=== PATIENT | female | born 1955 ===

== ENCOUNTER 2024-06-27 18:42 | Inpatient (IN) | payer MEDICARE ==
[~2024-06-27] VITALS: Ht 154.9 cm; Wt 78.9 kg
[2024-06-27] MEDS ORDERED: METF-440 PO (18:53)
[2024-06-27] MEDS ORDERED: DESV50TA PO (18:53)
[2024-06-27] MEDS ORDERED: GABA-532 PO (18:53)
[2024-06-27] MEDS ORDERED: TRAZ-182 PO (18:53)
[2024-06-27] MEDS ORDERED: SENN1TAB77 PO (18:53)
[2024-06-27] MEDS ORDERED: LOSA100T31 PO (18:53)
[2024-06-27] MEDS ORDERED: QUET50TA15 PO (18:53)
[2024-06-27 19:05] LABS: BASOPHILS # (AUTO) 0.1 K/UL (0.0-0.2); BASOPHILS % (AUTO) 0.8 % (0.0-2.0); DIFFERENTIAL COMMENT 0; EOSINOPHILS # (AUTO) 0.2 K/uL (0.0-0.7); HEMATOCRIT 42.2 % (31.2-41.9); HEMOGLOBIN 13.9 g/dL (10.9-14.3); LYMPHOCYTES % (AUTO) 36.9 % (20.5-51.5); MEAN CORPUSCULAR HEMOGLOBIN 30.4 uug (24.7-32.8); MEAN CORPUSCULAR HGB CONC 33 g/dL (32.3-35.6); MEAN CORPUSCULAR VOLUME 92.5 fL (75.5-95.3); MONOCYTES # (AUTO) 0.6 K/uL (0.1-1.30); MONOCYTES % (AUTO) 7.3 % (0.0-11.0); NEUTROPHILS # (AUTO) 4.2 K/uL (1.8-8.9); PLATELET COUNT (AUTO) 312 K/uL (179-408); RED BLOOD CELL COUNT(AUTO) 4.56 MIL/uL (3.63-4.92); RED CELL DISTRIBUTION WIDTH 15.1 % (12.3-17.7)
[2024-06-27 19:12] LABS: *BILIRUBIN,URIN NEGATIVE (NEGATIVE); *BLOOD, URINE NEGATIVE (NEGATIVE); *CLARITY,URINE CLEAR (CLEAR); *COLOR,URINE YELLOW (YELLOW); *KETONES,URINE NEGATIVE (NEGATIVE); *PROTEIN,URINE NEGATIVE (NEGATIVE); *UROBILINOGEN,URINE 0.2 E.U./dl (NORMAL); LEUKOCYTE ESTERASE ,URINE TRACE (NEGATIVE); NITRITE, URINE NEGATIVE (NEGATIVE); PH,URINE 5.5 (5.0-8.0); UGLUCOSE NEGATIVE (NEGATIVE)
[2024-06-27 19:14] LABS: CALCIUM 9.4 mg/dL (8.5-10.1); CARBON DIOXIDE 29 mmol/L (21-32); CHLORIDE 103 mmol/L (98-107); CREATININE 1.1 mg/dL (0.6-1.3); GLUCOSE 101 mg/dL (74-106); POTASSIUM 3.9 mmol/L (3.5-5.1); RBC,URINE 0-3 /HPF (0-3); SODIUM SERUM 140 mmol/L (136-145); UREA NITROGEN, BLOOD 13 mg/dL (7-18); WBC,URINE 0-3 /HPF (0-3)
[2024-06-27 19:19] LABS: ETHANOL < 3 MG/DL (0-10)
[2024-06-27 19:20] LABS: *AMPHETAMINE, URINE NEGATIVE (NEGATIVE); *BARBITURATE, URINE NEGATIVE (NEGATIVE); *BENZODIAZEPINE, URINE NEGATIVE (NEGATIVE); *CANNABINOID, URINE NEGATIVE (NEGATIVE); *COCCAINE, URINE NEGATIVE (NEGATIVE); *OPIATE, URINE NEGATIVE (NEGATIVE); *PHENCYCLIDINE SCREEN,URINE NEGATIVE (NEGATIVE); ACETAMINOPHEN < 2.0 ug/mL (10-30); ALANINE AMINOTRANSFERASE 16 U/L (14-59); ALBUMIN 3.7 g/dL (3.4-5.0); ALKALINE PHOSPHATASE 97 U/L (50-136); ASPARTATE AMINOTRANSFERASE 11 U/L (15-37); BILIRUBIN,TOTAL 0.3 mg/dL (0.2-1.0); FENTANYL, URINE NEGATIVE (NEGATIVE); TOTAL PROTEIN, SERUM 7.6 g/dL (6.4-8.2)
[2024-06-27 22:07] VITALS: BP 165/81; TEMP 97.9; O2SAT 98
[2024-06-27] MEDS ORDERED: MAG HYDROX/AL HYDROX/SIMETH 30 ML LIQUID UDC PO PRN (23:45)
[2024-06-27] MEDS ORDERED: TEMAZEPAM 7.5 MG CAPSULE PO PRN ×2 (23:45)
[2024-06-27] MEDS ORDERED: MAGNESIUM HYDROXIDE 30 ML LIQUID UDC PO PRN (23:45)
[2024-06-27] MEDS ORDERED: CLONAZEPAM 0.5 MG TABLET PO PRN (23:45)
[2024-06-28] MEDS: BLOOD SUGAR DIAGNOSTIC 1 EACH STRIP VI ONE (00:37)
[2024-06-28 07:55] VITALS: BP 168/73; TEMP 98; O2SAT 99
[2024-06-28 09:23] LABS: CALCIUM 9.3 mg/dL (8.5-10.1); CARBON DIOXIDE 29 mmol/L (21-32); CHLORIDE 104 mmol/L (98-107); CREATININE 1.2 mg/dL (0.6-1.3); GLUCOSE 131 mg/dL (74-106); POTASSIUM 3.7 mmol/L (3.5-5.1); SODIUM SERUM 141 mmol/L (136-145); UREA NITROGEN, BLOOD 11 mg/dL (7-18)
[2024-06-28] MEDS: LOSARTAN POTASSIUM 50 MG TABLET PO SCH (09:44)
[2024-06-28] MEDS: GABAPENTIN 100 MG CAPSULE PO SCH (09:44)
[2024-06-28] MEDS: METFORMIN HCL 500 MG TABLET PO SCH (09:44)
[2024-06-28] MEDS: VENLAFAXINE XR 75 MG TAB.ER.24H PO SCH (09:45)
[2024-06-28 16:20] VITALS: BP 155/73; TEMP 98; O2SAT 98
[2024-06-28 19:52] VITALS: BP 152/75; TEMP 98; O2SAT 99
[2024-06-28] MEDS: QUETIAPINE FUMARATE 25 MG TABLET PO SCH (20:27)
[2024-06-28] MEDS: SENNOSIDES/DOCUSATE SODIUM TABLET PO SCH (20:27)
[2024-06-28] MEDS: ACETAMINOPHEN 325 MG TABLET PO PRN (21:14)
[2024-06-29 08:51] VITALS: BP 130/64; TEMP 98; O2SAT 98
[2024-06-29 15:17] VITALS: BP 128/64; TEMP 98; O2SAT 99
[2024-06-29 20:00] VITALS: BP 153/72; TEMP 98.2; O2SAT 99
[2024-06-30 08:00] VITALS: BP 183/80; TEMP 98; O2SAT 98
[2024-06-30 16:00] VITALS: BP 178/78; TEMP 98.2; O2SAT 94
[2024-06-30 20:16] VITALS: BP 178/82; TEMP 98; O2SAT 99
[2024-06-30 21:51] VITALS: BP 121/62; O2SAT 98
[2024-07-01 09:03] VITALS: BP 163/62; TEMP 97.6; O2SAT 99
[2024-07-01 17:44] VITALS: BP 160/76; TEMP 97.9; O2SAT 98
[2024-07-01 20:00] VITALS: BP 145/73; TEMP 97.6; O2SAT 98
[2024-07-02 08:31] VITALS: BP 182/71; TEMP 98.3; O2SAT 98
[2024-07-02] MEDS: CLONAZEPAM 0.5 MG TABLET PO PRN (15:47)
[2024-07-02 16:45] VITALS: BP 157/118; TEMP 98.1; O2SAT 98
[2024-07-02 19:45] VITALS: BP 167/66; TEMP 97.2; O2SAT 99
[2024-07-03 09:07] VITALS: BP 128/77; TEMP 98.2; O2SAT 99
[2024-07-03 15:09] VITALS: BP 106/60; TEMP 98.1; O2SAT 98
[2024-07-03 20:00] VITALS: BP 158/70; TEMP 98.1; O2SAT 97
[2024-07-04 07:45] VITALS: BP 143/70; TEMP 98; O2SAT 98
[2024-07-04 15:09] VITALS: BP 139/52; TEMP 98; O2SAT 98
[2024-07-04 20:00] VITALS: BP 147/59; TEMP 97.5; O2SAT 98
[2024-07-05 07:50] VITALS: BP 155/87; TEMP 98; O2SAT 99
[2024-07-05 15:53] VITALS: BP 152/65; TEMP 98; O2SAT 99
[2024-07-05 20:00] VITALS: BP 141/75; TEMP 98.1; O2SAT 99
[2024-07-06 08:01] VITALS: BP 166/58; TEMP 98; O2SAT 98
[2024-07-06] MEDS ORDERED: VENLAFAXINE XR 75 MG TAB.ER.24H PO SCH (09:00)
[2024-07-06] MEDS: VENLAFAXINE XR 37.5 MG CAP.SR.24H PO SCH (09:28)
[2024-07-06 15:54] VITALS: BP 132/68; TEMP 98; O2SAT 98
[2024-07-06 20:00] VITALS: BP 140/60; TEMP 98.5; O2SAT 98
[2024-07-06] MEDS: QUETIAPINE FUMARATE 25 MG TABLET PO SCH (20:37)
[2024-07-07 07:53] VITALS: BP 167/84; TEMP 98; O2SAT 98
[2024-07-07 15:19] VITALS: BP 186/73; TEMP 98; O2SAT 98
[2024-07-07 20:00] VITALS: BP 147/56; TEMP 98; O2SAT 98
[2024-07-08 08:49] VITALS: BP 184/76; TEMP 98.2; O2SAT 98
[2024-07-08] MEDS: AMLODIPINE 5 MG TABLET PO SCH (11:55)
[2024-07-08 18:21] VITALS: BP 124/74; TEMP 98; O2SAT 98
[2024-07-08 20:00] VITALS: BP 163/72; TEMP 98; O2SAT 99
[2024-07-09 09:37] VITALS: BP 171/76; TEMP 98.3; O2SAT 98
[2024-07-09 17:31] VITALS: BP 149/76; TEMP 98.1; O2SAT 98
[2024-07-09 20:10] VITALS: BP 145/63; TEMP 98; O2SAT 99
[2024-07-09] MEDS: AMLODIPINE 5 MG TABLET PO SCH (21:11)
[2024-07-10 08:00] VITALS: BP 139/73; TEMP 97.6; O2SAT 98
[2024-07-10 20:13] VITALS: BP 136/68; TEMP 98; O2SAT 99
[2024-07-10] MEDS: QUETIAPINE FUMARATE 100 MG TABLET PO SCH (20:48)
[2024-07-10] MEDS ORDERED: QUETIAPINE FUMARATE 25 MG TABLET PO SCH (21:00)
[2024-07-11 07:57] VITALS: BP 149/77; TEMP 98; O2SAT 99
[2024-07-11 15:12] VITALS: BP 111/59; TEMP 98; O2SAT 99
[2024-07-11 19:49] VITALS: BP 136/63; TEMP 98.1; O2SAT 97
[2024-07-12 08:10] VITALS: BP 146/65; TEMP 98; O2SAT 99
[2024-07-12 16:13] VITALS: BP 133/69; TEMP 98; O2SAT 99
[2024-07-12 20:15] VITALS: BP 156/75; TEMP 98.1; O2SAT 98
[2024-07-13 09:21] VITALS: BP 149/80; TEMP 98; O2SAT 100
[2024-07-13 16:20] VITALS: BP 138/67; TEMP 98; O2SAT 100
[2024-07-13 19:45] VITALS: BP 141/67; TEMP 98; O2SAT 96
[2024-07-14 07:57] VITALS: BP 147/83; TEMP 98; O2SAT 100
[2024-07-14 09:12] VITALS: BP 147/83
== END 2024-07-14 13:00 | DRG 885 ==
LOC: ER 18:43 → GPS 21:15
PROVIDERS: ADMIT Psychiatry & Neurology Psychiatry; ATTEND Nurse Practitioner Acute Care
DX: F33.2 Major depressive disorder, recurrent severe without psychotic features (principal); R45.851 Suicidal ideations; D68.69 Other thrombophilia; Z79.84 Long term (current) use of oral hypoglycemic drugs; E11.42 Type 2 diabetes mellitus with diabetic polyneuropathy; E66.01 Morbid (severe) obesity due to excess calories; Z68.32 Body mass index [BMI] 32.0-32.9, adult; Z71.3 Dietary counseling and surveillance; E11.40 Type 2 diabetes mellitus with diabetic neuropathy, unspecified; H40.9 Unspecified glaucoma; E11.319 Type 2 diabetes mellitus with unspecified diabetic retinopathy without macular edema; M15.9 Polyosteoarthritis, unspecified; Z87.442 Personal history of urinary calculi; Z88.8 Allergy status to other drugs, medicaments and biological substances; E78.5 Hyperlipidemia, unspecified; F41.9 Anxiety disorder, unspecified; I10 Essential (primary) hypertension; J45.909 Unspecified asthma, uncomplicated; Z79.899 Other long term (current) drug therapy; Z81.8 Family history of other mental and behavioral disorders
CPT/HCPCS: 36415; 76770; 85025; A4606; A4663; G0480

== ENCOUNTER 2024-11-02 21:34 | Inpatient (IN) | payer MEDICARE ==
[~2024-11-02] VITALS: Ht 154.9 cm; Wt 81.6 kg
[~2024-11-02 21:34] MED LIST: GABA-532 PO; LOSA100T31 PO; METF-440 PO; SENN1TAB77 PO
[2024-11-03] MEDS ORDERED: TRAZ-182 PO (00:38)
[2024-11-03] MEDS ORDERED: AMLO10TA59 PO (00:38)
[2024-11-03] MEDS ORDERED: ATOR40TA PO (00:38)
[2024-11-03] MEDS ORDERED: METO25TA6 PO (00:38)
[2024-11-03] MEDS ORDERED: VENL75TA4 PO (00:38)
[2024-11-03] MEDS ORDERED: DESV100T PO (00:43)
[2024-11-03] MEDS ORDERED: HYOS-19 PO (00:43)
[2024-11-03] MEDS ORDERED: BREX1TAB PO (00:43)
[2024-11-03 00:50] VITALS: BP 139/57; TEMP 98.1; O2SAT 97
[2024-11-03] MEDS ORDERED: CLONAZEPAM 0.5 MG TABLET PO PRN (01:15)
[2024-11-03] MEDS ORDERED: TEMAZEPAM 7.5 MG CAPSULE PO PRN (01:15)
[2024-11-03] MEDS ORDERED: MAG HYDROX/AL HYDROX/SIMETH 30 ML LIQUID UDC PO PRN (01:15)
[2024-11-03] MEDS ORDERED: MAGNESIUM HYDROXIDE 30 ML LIQUID UDC PO PRN (01:15)
[2024-11-03] MEDS: TEMAZEPAM 7.5 MG CAPSULE PO PRN (01:41)
[2024-11-03] MEDS: BLOOD SUGAR DIAGNOSTIC 1 EACH STRIP VI ONE (01:41)
[2024-11-03 08:20] VITALS: BP 121/81; TEMP 98.2; O2SAT 97
[2024-11-03] MEDS: VENLAFAXINE 25 MG TABLET PO SCH (11:37)
[2024-11-03 16:22] VITALS: BP 166/89; TEMP 98; O2SAT 100
[2024-11-03] MEDS ORDERED: AMLO-212 PO (16:25)
[2024-11-03] MEDS ORDERED: METO-357 PO (16:27)
[2024-11-03 18:30] LABS: *BILIRUBIN,URIN NEGATIVE (NEGATIVE); *BLOOD, URINE NEGATIVE (NEGATIVE); *CLARITY,URINE CLEAR (CLEAR); *COLOR,URINE LIGHT YELLOW (YELLOW); *KETONES,URINE NEGATIVE (NEGATIVE); *PROTEIN,URINE NEGATIVE (NEGATIVE); *UROBILINOGEN,URINE 0.2 E.U./dl (NORMAL); LEUKOCYTE ESTERASE ,URINE NEGATIVE (NEGATIVE); NITRITE, URINE NEGATIVE (NEGATIVE); UGLUCOSE NEGATIVE (NEGATIVE)
[2024-11-03] MEDS: METFORMIN HCL 500 MG TABLET PO SCH (18:46)
[2024-11-03 20:00] VITALS: BP 139/61; TEMP 97.3; O2SAT 95
[2024-11-03] MEDS: ACETAMINOPHEN 325 MG TABLET PO PRN (20:24)
[2024-11-03] MEDS: QUETIAPINE FUMARATE 25 MG TABLET PO SCH (20:38)
[2024-11-03] MEDS: SENNOSIDES/DOCUSATE SODIUM TABLET PO SCH (20:38)
[2024-11-04 08:02] VITALS: BP 100/70; TEMP 98; O2SAT 98
[2024-11-04 08:07] LABS: BASOPHILS # (AUTO) 0.1 K/UL (0.0-0.2); BASOPHILS % (AUTO) 0.8 % (0.0-2.0); EOSINOPHILS # (AUTO) 0.4 K/uL (0.0-0.7); EOSINOPHILS % (AUTO) 6.4 % (0.0-7.0); HEMATOCRIT 38.5 % (31.2-41.9); HEMOGLOBIN 12.7 g/dL (10.9-14.3); LYMPHOCYTES % (AUTO) 33.3 % (20.5-51.5); MEAN CORPUSCULAR HGB CONC 33 g/dL (32.3-35.6); MONOCYTES # (AUTO) 0.6 K/uL (0.1-1.30); NEUTROPHILS # (AUTO) 3.1 K/uL (1.8-8.9); NEUTROPHILS % (AUTO) 50.5 % (38.5-71.5); PLATELET COUNT (AUTO) 219 K/uL (179-408); RED BLOOD CELL COUNT(AUTO) 4.23 MIL/uL (3.63-4.92); RED CELL DISTRIBUTION WIDTH 15.1 % (12.3-17.7); WHITE BLOOD COUNT (AUTO) 6.2 K/uL (3.8-11.8)
[2024-11-04 08:26] LABS: DIFFERENTIAL COMMENT 1
[2024-11-04 08:31] LABS: ALANINE AMINOTRANSFERASE 19 U/L (14-59); ALBUMIN 3.2 g/dL (3.4-5.0); ALKALINE PHOSPHATASE 85 U/L (50-136); ASPARTATE AMINOTRANSFERASE 14 U/L (15-37); BILIRUBIN,TOTAL 0.5 mg/dL (0.2-1.0); CALCIUM 8.9 mg/dL (8.5-10.1); CARBON DIOXIDE 27 mmol/L (21-32); CHLORIDE 106 mmol/L (98-107); CREATININE 1.1 mg/dL (0.6-1.3); GLUCOSE 101 mg/dL (74-106); SODIUM SERUM 143 mmol/L (136-145); TOTAL PROTEIN, SERUM 6.6 g/dL (6.4-8.2); UREA NITROGEN, BLOOD 31 mg/dL (7-18)
[2024-11-04 15:51] VITALS: BP 100/70; TEMP 98.2; O2SAT 98
[2024-11-04 20:00] VITALS: BP 178/75; TEMP 98.5; O2SAT 91
[2024-11-04 20:24] VITALS: BP 190/85; TEMP 98.4; O2SAT 97
[2024-11-04] MEDS: CLONIDINE HCL 0.1 MG TABLET PO PRN (20:33)
[2024-11-04] MEDS: CLONAZEPAM 0.5 MG TABLET PO PRN (20:50)
[2024-11-04 21:24] VITALS: BP 152/71; TEMP 98.5; O2SAT 96
[2024-11-05 04:35] VITALS: BP 153/73; TEMP 98.5; O2SAT 96
[2024-11-05 05:35] VITALS: BP 138/66; TEMP 98.2; O2SAT 95
[2024-11-05 08:24] VITALS: BP 151/81; TEMP 97.3; O2SAT 96
[2024-11-05] MEDS: AMLODIPINE 5 MG TABLET PO SCH (13:11)
[2024-11-05 16:24] VITALS: BP 189/90; TEMP 97.6; O2SAT 100
[2024-11-05 20:34] VITALS: BP 141/87; TEMP 97.9; O2SAT 99
[2024-11-06 08:24] VITALS: BP 119/96; TEMP 97.8; O2SAT 99
[2024-11-06] MEDS: VENLAFAXINE XR 37.5 MG CAP.SR.24H PO SCH (08:42)
[2024-11-06] MEDS: METOPROLOL SUCCINATE XL 50 MG TAB.SR.24H PO SCH (08:43)
[2024-11-06] MEDS: QUETIAPINE FUMARATE 25 MG TABLET PO SCH (08:43)
[2024-11-06 16:53] VITALS: BP 175/91; TEMP 97.5; O2SAT 96
[2024-11-06 20:20] VITALS: BP 169/75; TEMP 98; O2SAT 98
[2024-11-06 21:15] VITALS: BP 137/78
[2024-11-07 08:20] VITALS: BP 169/78; TEMP 98.9; O2SAT 99
[2024-11-07 16:52] VITALS: BP 188/117; TEMP 98; O2SAT 97
[2024-11-07 20:10] VITALS: BP 171/72; TEMP 98.1; O2SAT 99
[2024-11-07] MEDS: AMLODIPINE 5 MG TABLET PO SCH (20:24)
[2024-11-07] MEDS: VENLAFAXINE XR 37.5 MG CAP.SR.24H PO SCH (21:25)
[2024-11-07 21:32] VITALS: BP 129/88; O2SAT 98
[2024-11-08 08:01] VITALS: BP 157/77; TEMP 98; O2SAT 98
[2024-11-08 15:28] VITALS: BP 149/66; TEMP 98; O2SAT 98
[2024-11-08 20:00] VITALS: BP 147/63; TEMP 97.9; O2SAT 96
[2024-11-09 07:49] VITALS: BP 153/71; TEMP 98; O2SAT 98
[2024-11-09 15:21] VITALS: BP 134/64; TEMP 98; O2SAT 96
[2024-11-09 20:00] VITALS: BP 145/62; TEMP 98.1; O2SAT 96
[2024-11-09] MEDS: QUETIAPINE FUMARATE 25 MG TABLET PO SCH (20:17)
[2024-11-10 07:46] VITALS: BP 138/70; TEMP 98.2; O2SAT 96
[2024-11-10 15:43] VITALS: BP 130/67; TEMP 98.2; O2SAT 99
[2024-11-10 20:00] VITALS: BP 146/63; TEMP 98; O2SAT 97
[2024-11-11 07:39] VITALS: BP 120/51; TEMP 98.2; O2SAT 96
[2024-11-11 15:22] VITALS: BP 128/65; TEMP 98; O2SAT 98
[2024-11-11] MEDS: QUETIAPINE FUMARATE 25 MG TABLET PO SCH (20:45)
[2024-11-11 20:59] VITALS: BP 138/62; TEMP 98.3; O2SAT 97
[2024-11-12 08:22] VITALS: BP 128/71; TEMP 98.2; O2SAT 100
[2024-11-12 16:53] VITALS: BP 148/75; TEMP 97.7; O2SAT 98
[2024-11-12 20:28] VITALS: BP 142/61; TEMP 98; O2SAT 98
[2024-11-13 08:20] VITALS: BP 159/73; TEMP 97.6; O2SAT 94
[2024-11-13 16:57] VITALS: BP 149/70; TEMP 97.3; O2SAT 100
[2024-11-13 20:05] VITALS: BP 156/62; TEMP 97.8; O2SAT 98
[2024-11-14] MEDS: VENLAFAXINE XR 150 MG CAP.SR.24H PO SCH (08:19)
[2024-11-14 08:22] VITALS: BP 164/65; TEMP 98.3; O2SAT 97
[2024-11-14] MEDS ORDERED: VENLAFAXINE XR 37.5 MG CAP.SR.24H PO SCH (09:00)
[2024-11-14] MEDS: LOSARTAN POTASSIUM 50 MG TABLET PO SCH (12:21)
[2024-11-14] MEDS: AMLODIPINE 5 MG TABLET PO SCH (12:22)
[2024-11-14 16:28] VITALS: BP 163/82; TEMP 97.9; O2SAT 97
[2024-11-14 20:00] VITALS: BP 139/70; TEMP 99.3; O2SAT 96
[2024-11-14] MEDS: ATORVASTATIN 40 MG TABLET PO SCH (21:05)
[2024-11-15 07:47] VITALS: BP 125/46; TEMP 98; O2SAT 98
[2024-11-15 09:04] VITALS: BP 125/64
== END 2024-11-15 14:45 | DRG 885 ==
LOC: ER 21:34 → GPS 23:15
PROVIDERS: ADMIT Psychiatry & Neurology Psychiatry; ATTEND Nurse Practitioner Family
DX: F33.3 Major depressive disorder, recurrent, severe with psychotic symptoms (principal); D68.59 Other primary thrombophilia; G47.00 Insomnia, unspecified; E11.319 Type 2 diabetes mellitus with unspecified diabetic retinopathy without macular edema; J45.909 Unspecified asthma, uncomplicated; E66.01 Morbid (severe) obesity due to excess calories; E78.5 Hyperlipidemia, unspecified; Z79.84 Long term (current) use of oral hypoglycemic drugs; H40.9 Unspecified glaucoma; Z97.0 Presence of artificial eye; Z88.5 Allergy status to narcotic agent; Z68.34 Body mass index [BMI] 34.0-34.9, adult; Z87.442 Personal history of urinary calculi; Z79.899 Other long term (current) drug therapy; Z90.710 Acquired absence of both cervix and uterus; F41.1 Generalized anxiety disorder; I10 Essential (primary) hypertension
CPT/HCPCS: 36415; 85025